=== PATIENT | female | born 1995 | race African-American/Black ===

== ENCOUNTER 2017-05-30 17:50 | Inpatient (IN) ==
[2017-05-30] MEDS: LACTATED RINGERS 1,000 ML IV SCH ×2 (18:20→21:49)
[2017-05-30] MEDS ORDERED: ONDANSETRON 4 MG/2 ML VIAL IV PRN (18:21)
[2017-05-30] MEDS ORDERED: BUTORPHANOL 2 MG/ML VIAL IV PRN (18:21)
[2017-05-30 18:43] LABS: Basophils % 0.2 % (0.0-0.8); Eosinophils % 0.3 % (0.00-10.9); Hematocrit 30.1 VOL% (35.7-47.0); Hemoglobin 9.8 GM/DL (12.0-16.0); Immature Granulocytes % 0.6 %; Immature Granulocytes Absolute 0.04 #; Lymphocytes % 32.4 % (21.3-54.2); Mean Corpuscular HGB Conc 32.6 GM/DL (32-36); Mean Corpuscular Hemoglobin 26 PG (27-34); Mean Corpuscular Volume 81.1 FL (87-102); Mean Platelet Volume 10.7 FL (9.6-12.0); Monocytes # 0.4 10*3/uL (0.11-0.8); Monocytes % 6.8 % (1.7-12.7); Neutrophils # 3.8 10*3/uL (1.4-7.4); Neutrophils % 59.7 % (38.7-73.9); Platelet Count 282 T/CUMM (130-400); Red Blood Count 3.71 MC/CUMM (3.8-5.5); Red Cell Distribution Width 13.2 % (9.3-17.3); White Blood Count 6.3 T/CUMM (4-12)
[2017-05-30] MEDS: AMPICILLIN INJ 2,000 MG in SODIUM CHLORIDE 0.9% 50 ML IV SCH (19:22)
[2017-05-30 19:31] LABS: Albumin 2.5 G/DL (3.4-5.0); Bilirubin,Total 0.5 MG/DL (0.2-1.0); Calcium 9.1 MG/DL (8.5-10.1); Osmolality,Calculated 273.5 MOS/KG (273-304); Potassium 4.1 MMOL/L (3.5-5.1)
[2017-05-30] MEDS ORDERED: MEPERIDINE 50 MG/1 ML VIAL IV PRN (21:24)
[2017-05-30] MEDS ORDERED: CITRIC ACID/SODIUM CITRATE 30 ML UDCUP PO ONE (21:48)
[2017-05-30] MEDS ORDERED: FAMOTIDINE 20 MG/2 ML VIAL IV ONE (21:48)
[2017-05-30] MEDS ORDERED: ePHEDrine 50 MG/ML AMP ONE (21:51)
[2017-05-30] MEDS: fentaNYL 2 MCG/ROPIV 0.2% EPID 150 ML EPIDURAL SCH (22:07)
[2017-05-30 23:05] LABS: Apearance,Urine Slightly Hazy (Clear); Bilirubin,Urine Negative (Negative); Blood, Urine Negative (Negative); Glucose,Urine (UA) Negative (Negative); Ketones,Urine 20 mg/dL (Negative); Mucus,Urine Occasional /LPF (Occasional); Nitrite,Urine Negative (Negative); Protein,Urine Negative; RBC,Urine 2 /HPF (0-4); Squamous Epithelial Cell,Urine Occasional /HPF (0-10); Urine Color Yellow (Yellow); Urine Specific Gravity 1.024 (1.001-1.035); WBC,Urine 1 /HPF (0-6)
[2017-05-31] MEDS: AMPICILLIN INJ 2,000 MG in SODIUM CHLORIDE 0.9% 50 ML IV SCH ×3 (01:10→17:56)
[2017-05-31] MEDS ORDERED: OXYTOCIN/LR 20 UNIT/1,000 ML BAG IV SCH ×2 (04:00)
[2017-05-31] MEDS: fentaNYL 2 MCG/ROPIV 0.2% EPID 150 ML EPIDURAL SCH (08:20)
[2017-05-31] MEDS ORDERED: miSOPROStol 200 MCG TABLET ONE (09:53)
[2017-05-31] MEDS ORDERED: miSOPROStol 200 MCG TABLET VAG ONE (09:55)
[2017-05-31 10:04] LABS: Cord Venous Blood HCO3 19.4 MMOL/L; Cord Venous Blood PCO2 39.6 MMHG; Cord Venous Blood PO2 38.1
--- NOTE | 2017-05-31 10:58 | OB/GYN History & Physical ---
History of Present Illness Chief complaint: Spontaneous rupture of membranes History of present illness: Ms. Chung is a 21 year old female who is a primigravida. JOHNY 06/13/2017 estimated gestational age of 38 weeks who presented to the labor department with complaints of spontaneous rupture membranes with clear fluid noted. In light of these findings patient was admitted for augmentation of labor due to spontaneous rupture membranes. The risk and benefits been thoroughly discussed with this patient significant other, plan of care has been discussed with Dr. Joy and all parties are in agreement with plan of care. Patient is started her care and her second trimester at the [facility] after that she received routine care throughout and her course was uneventful. labs: She is B positive, rubella is immune, RPR is nonreactive, hepatitis B negative, HIV negative, GBS culture positive. Review of systems is negative with exception of above. Home Medications Medication Instructions Recorded Confirmed Type No Known Home Medications [No 05/30/17 05/30/17 History Known Home Medications] Allergies Allergy/AdvReac Type Severity Reaction Status Date / Time No Known Allergies Allergy Verified 05/09/17 15:20 12 point system: reviewed and no additional remarkable complaints except as stated Medical,Surgical,& Family Hx - Medical History Medical History: noncontributory - Surgical History Surgical History: noncontributory - Family History Family History: noncontributory Family History: Reports;: Family Hypertension (MGM PGM) Denies;: Additional Family History - Social History Smoking Status: Never smoker Frequency of Alcohol Use: None Type of Drug Use: None Marital Status: Single Lives With:: Significant Other Functional capacity: independent ambulation Exam [employer] - Constitutional Vitals: Vital Signs Temp Pulse Resp BP Pulse Ox 05/31/17 04:00 97.6 F 93 H 18 106/65 100 05/31/17 00:00 97.8 F 75 18 101/64 100 05/30/17 19:17 97.7 F 86 18 112/77 99 05/30/17 18:26 85 18 122/77 General appearance: no acute distress - Antepartum / Post Antepartum Exam Cervix - Dilatation: Completely dilated Breast: bilateral: normal Abdomen obstetrics: Present: bowel sounds normal Vagina: Present: normal moisture, discharge Uterus exam: Present: enlarged Anus/Rectum: Present: normal perianal skin - Head Head exam: Present: normal inspection - Respiratory Respiratory exam: Present: clear to auscultation bilaterally - Cardiovascular Cardiovascular exam: Present: regular rate and rhythm - GI/Abdominal GI/Abdominal exam: Present: normal bowel sounds, soft - Extremities Exam Extremities exam: Present: normal inspection - Back Exam Back exam: Present: normal inspection - Neurological Exam Neurological exam: Present: alert, oriented X3 - Psychiatric Psychiatric exam: Present: normal affect, normal mood - Skin Skin exam: Present: normal color, warm Assessment and Plan (1) Spontaneous rupture of amniotic membranes Status: Acute Assessment and plan: Admit IV fluids IV Pitocin per protocol Internal monitors if indicated Epidural anesthesia if desired IV antibiotics prophylactically for positive GBS culture Anticipate Current Visit: Yes Results - Labs CBC & BMP: 05/30/17 18:33 05/30/17 18:33 Quality Measures - VTE Contraindication to Pharmacological VTE Prophylaxis: Clinical assessment deems Pt at low risk, no prophalaxis needed
[2017-05-31] MEDS ORDERED: ACETAMINOPHEN/CODEINE 300-30 MG TABLET PO PRN (11:13)
--- NOTE | 2017-05-31 11:19 | Event Note ---
HPI: Ms. Chung presented to the labor department with spontaneous rupture membranes. She was admitted for augmentation of labor due to the same. Stage I: The patient was admitted and she received IV fluids and IV Pitocin per protocol. She progressed in labor with a CAT 1 tracing. She received IV antibiotics prophylactically for positive GBS culture. She received an epidural for pain control. She progressed in labor with a CAT 1 tracing. She had an uneventful course of labor. Stage II: The patient was complete complain of pressure and desire to push. She pushed for approximately 45 minutes after which time she started to experience exhaustion therefore a second-degree midline episiotomy was performed. The patient pushed for another 5-10 minutes. When the 's head was at a +3 station vacuum application was applied 2 with attempt at the second attempt it was noted that the 's head was in OP position therefore no further attempts were made. The patient pushed approximately 3 more times after this and manual rotation of the infant's head was performed and the head was then delivered the mouth and nose were suctioned on the perineum. The remainder the was delivered at 937, a viable male was noted. The was placed on the mom's abdomen for skin to skin bonding. Apgars were 8 at 1 minute and 9 at 5 minutes. weight was 7 pounds and 13 ounces. A cord pH was obtained and sent to the lab. Stage III: A spontaneous delivery of a Wyatt placenta with a three-vessel cord noted. The placenta was further examined appeared to be grossly intact. The vagina cervix inspected with no additional tears or lacerations noted. The episiotomy was repaired in the usual fashion, epidural anesthesia remain in effect on repair. Estimated blood loss approximately 250 cc. At the time of dictation mother and baby are both in stable condition.
[2017-05-31] MEDS ORDERED: BENZOCAINE 20%/MENTHOL 0.5% SPRAY 56 GM CAN TOP PRN (14:31)
[2017-05-31] MEDS ORDERED: DIPH/TET/ACEL PERT BOOSTER VACCINE 0.5 ML VIAL IM ONE (14:31)
[2017-05-31] MEDS ORDERED: MEASLES/MUMPS/RUBELLA VACCINE 0.5 ML VIAL SUBCUT ONE (14:31)
[2017-05-31] MEDS ORDERED: BISACODYL 10 MG SUPP RECTAL PRN (14:31)
[2017-05-31] MEDS ORDERED: RHO(D) IMMUNE GLOBULIN 300 MCG SYRINGE IM ONE (14:31)
[2017-05-31] MEDS ORDERED: ACETAMINOPHEN 325 MG TABLET PO PRN (14:31)
[2017-05-31] MEDS ORDERED: HYDROCORTISONE 2.5% RECTAL CREAM 30 GM TUBE TOP PRN (14:31)
[2017-05-31] MEDS ORDERED: WITCH HAZEL PADS 100/JAR TOP PRN (14:31)
[2017-05-31] MEDS ORDERED: LANOLIN 50% CREAM 0.3 OZ TUBE TOP PRN (14:31)
[2017-05-31] MEDS ORDERED: oxyCODONE/ACETAMINOPHEN 5-325 MG TABLET PO PRN ×2 (14:31)
[2017-05-31] MEDS: LACTATED RINGERS 1,000 ML IV SCH (17:54)
[2017-05-31] MEDS ORDERED: OXYTOCIN/LR 20 UNIT/1,000 ML BAG IV ONE (18:22)
[2017-05-31] MEDS: IBUPROFEN 800 MG TABLET PO PRN (20:20)
[2017-05-31] MEDS: DOCUSATE SODIUM 100 MG CAPSULE PO SCH (20:43)
[2017-06-01 04:50] LABS: Basophils % 0.1 % (0.0-0.8); Eosinophils # 0.1 10*3/uL (0.0-0.87); Eosinophils % 0.4 % (0.00-10.9); Hematocrit 21.6 VOL% (35.7-47.0); Hemoglobin 6.8 GM/DL (12.0-16.0); Immature Granulocytes % 0.5 %; Immature Granulocytes Absolute 0.08 #; Lymphocytes # 2.8 10*3/uL (1.4-4.0); Lymphocytes % 18.7 % (21.3-54.2); Mean Corpuscular HGB Conc 31.5 GM/DL (32-36); Mean Corpuscular Hemoglobin 26 PG (27-34); Mean Corpuscular Volume 82.8 FL (87-102); Mean Platelet Volume 11.2 FL (9.6-12.0); Monocytes % 6.8 % (1.7-12.7); Neutrophils # 11.1 10*3/uL (1.4-7.4); Neutrophils % 73.5 % (38.7-73.9); Platelet Count 227 T/CUMM (130-400); Red Blood Count 2.61 MC/CUMM (3.8-5.5); Red Cell Distribution Width 13.1 % (9.3-17.3); White Blood Count 15.2 T/CUMM (4-12)
[2017-06-01 06:15] LABS: Giant Platelets Few; Hypochromasia 1+; Microcytosis Slight; Platelet Estimate Adequate
[2017-06-01] MEDS: FERROUS SULFATE 325 MG TABLET PO SCH ×2 (08:53→21:16)
[2017-06-01] MEDS: DOCUSATE SODIUM 100 MG CAPSULE PO SCH ×2 (08:54→21:16)
[2017-06-01] MEDS ORDERED: SODIUM CHLORIDE 0.9% 250 ML IV PRN (09:14)
--- NOTE | 2017-06-01 13:14 | Progress Note ---
Family Medicine PN Sub Interval history: day #1 Status post vaginal delivery Lungs are clear, cardiac exam benign, abdomen soft, extremities are well within normal limits H&H is down to 6 and 21 We will plan on administering 2 units of packed RBCs possible discharge in tomorrow. Exam (Progress Note) - Constitutional Vitals: Period Temp Pulse Resp BP Sys/Trevizo Pulse Ox Last 24 Hr 96.8 F-97.9 F 68-89 18-20 89-109/45-68 98-100 Results - Labs CBC & BMP: 06/01/17 04:01 05/30/17 18:33 Quality Measures - VTE Contraindication to Pharmacological VTE Prophylaxis: Clinical assessment deems Pt at low risk, no prophalaxis needed Specialty Discharge - Follow Up or Referrals Follow up with: Jose Joy MD [Physician] -
[2017-06-01 15:37] LABS: Hematocrit 25.8 VOL% (35.7-47.0)
[2017-06-01 15:40] LABS: Hemoglobin 8.6 GM/DL (12.0-16.0)
[2017-06-01] MEDS: IBUPROFEN 800 MG TABLET PO PRN (21:16)
[2017-06-02] MEDS: FERROUS SULFATE 325 MG TABLET PO SCH (08:05)
[2017-06-02] MEDS: DOCUSATE SODIUM 100 MG CAPSULE PO SCH (08:05)
[2017-06-02 08:53] VITALS: BP 108/67
--- NOTE | 2017-06-02 09:41 | Discharge Summary ---
Hospital Course - Hospital Course Hospital Course: Ms. Chung presented to the labor department in active labor. She subsequently delivered a viable with no complications. She has followed a normal course and she has done well. Her bleeding is minimal with no odor. Her perineum is intact with no edema. Her vital signs and lab values are stable. She is bonding well with her . Contraception options has been discussed with this patient and she is unsure of a method at this time. She will be discharged home prescriptions for pain and a follow-up appointment in our office. Diagnosis - Discharge Diagnosis (1) Spontaneous rupture of amniotic membranes Status: Acute Specialty Discharge - Follow Up or Referrals Follow up with: Jose Joy MD [Physician] - (Follow-up in 6 weeks.) Discharge Plan - Discharge Data Disposition: Disch To Home/Self Care Condition at Discharge: Stable Discharge Diet: advance to your usual diet, regular diet Activity: resume usual activities as tolerated Hygiene: no restrictions, may shower Weight Bearing at Discharge: weight bear as tolerated Driving: no restrictions Contact your physician if you experience:: fever over 101, pain uncontrolled by pain medications - Discharge Medications New Acetamin/Codeine 300-30 Tab [Tylenol/Codeine #3] 2 tablet PO Q4H PRN #30 tablet PRN Reason: Pain Mild (1-3) Ferrous Sulfate Tab [Feosol Original Tab] 325 mg PO BID #60 tablet Ibuprofen Tab [Motrin Tab] 800 mg PO Q6H PRN #30 tablet PRN Reason: Pain Moderate (4-7) - Follow Up or Referral Follow Up: Jose Joy MD [Physician] - - Forms/Instructions Instructions: Acetaminophen/Codeine (By mouth), Perineal Care (DC), Vaginal Delivery (DC), Bleeding (DC) Exam - Constitutional Vitals: Period Temp Pulse Resp BP Sys/Trevizo Pulse Ox Last 24 Hr 97 F-98.8 F 63-79 18-20 89-123/45-67 98-100 General appearance: no acute distress - Head Head exam: Present: normal inspection - ENT ENT exam: Present: normal exam - Respiratory Respiratory exam: Present: clear to auscultation bilaterally - Cardiovascular Cardiovascular exam: Present: regular rate and rhythm - GI/Abdominal GI/Abdominal exam: Present: normal bowel sounds, soft - Extremities Exam Extremities exam: Present: normal inspection - Back Exam Back exam: Present: normal inspection - Neurological Exam Neurological exam: Present: alert, oriented X3 - Psychiatric Psychiatric exam: Present: normal affect, normal mood - Skin Skin exam: Present: normal color, warm Discharge Results Procedures and tests throughout hospitalization: Pending Orders 05/30/17 18:22 Urinalysis Routine Labs on day of discharge: Labs from last 24 hours 06/01/17 06/01/17 15:10 04:00 Hgb 8.6 L D Hct 25.8 L Blood Type Cancelled Antibody Screen Cancelled Crossmatch See Detail Blood Bank Comment Cancelled DS: Provider Date of admission: 05/30/17 18:22 Attending physician on admission: Jose Joy MD Consults: 05/30/17 18:22 Consult to Anesthesiology [CONS] Routine Consulting Provider: Reason for Anesthesiology: Epidural Consult Comment: Epidural for pain managment 05/31/17 14:31 Consult to Cement Finisher [CONS] Routine Consult Cement Finisher: Breast Feeding Discharging clinician: Eva Ojeda CNM Expected date of discharge: 06/02/17
--- NOTE | 2017-06-02 10:06 | Anesthesia Post-Op ---
Anesthesia Post OP - Post Ansesthetic Evaluation Patient seen in post op: Yes Resp: within normal limits CV: within normal limits Mental: within normal limits Temp: within normal limits [id number]: within normal limits Nausea and Vomiting: within normal limits Pain: within normal limits
== END 2017-06-02 12:35 | disposition home or self-care (01) | DRG 560 ==
LOC: N.LDOUT 17:50 → N.LD 17:52 → N.OB 05-31 14:26
PROVIDERS: ADMIT Obstetrics & Gynecology; ATTEND Obstetrics & Gynecology

== ENCOUNTER 2019-07-28 06:03 | Inpatient (IN) ==
[2019-07-28] MEDS ORDERED: ONDANSETRON 4 MG/2 ML VIAL IV PRN (06:15)
[2019-07-28] MEDS ORDERED: LACTATED RINGERS 1,000 ML IV SCH ×2 (06:30→08:00)
[2019-07-28] MEDS ORDERED: OXYTOCIN/LR 20 UNIT/1,000 ML BAG IV SCH (06:30)
[2019-07-28 06:45] LABS: Basophils % 0.3 % (0.0-0.8); Eosinophils % 0.3 % (0.00-10.9); Hematocrit 28.9 VOL% (35.7-47.0); Hemoglobin 9.2 GM/DL (12.0-16.0); Immature Granulocytes % 0.3 %; Immature Granulocytes Absolute 0.02 #; Lymphocytes # 1.9 10*3/uL (1.4-4.0); Lymphocytes % 27.8 % (21.3-54.2); Mean Corpuscular HGB Conc 31.8 GM/DL (32-36); Mean Corpuscular Volume 77.9 FL (87-102); Mean Platelet Volume 10.9 FL (9.6-12.0); Monocytes % 5.2 % (1.7-12.7); Neutrophils % 66.1 % (38.7-73.9); Platelet Count 241 T/CUMM (130-400); Red Blood Count 3.71 MC/CUMM (3.8-5.5); Red Cell Distribution Width 13.4 % (9.3-17.3); White Blood Count 6.8 T/CUMM (4-12)
[2019-07-28 07:17] LABS: Albumin 2.5 G/DL (3.4-5.0); Bilirubin,Total 0.4 MG/DL (0.2-1.0); Calcium 8.4 MG/DL (8.5-10.1); Osmolality,Calculated 271.7 MOS/KG (273-304); Total Protein 6.8 G/DL (6.4-8.3)
[2019-07-28] MEDS ORDERED: diphenhydrAMINE 50 MG/1 ML VIAL IV PRN ×2 (07:39)
[2019-07-28] MEDS ORDERED: hydrOXYzine HCL 25 MG/1 ML VIAL IM PRN (07:39)
[2019-07-28] MEDS ORDERED: CITRIC ACID/SODIUM CITRATE 30 ML UDCUP PO ONE (07:39)
[2019-07-28] MEDS ORDERED: FAMOTIDINE 20 MG/2 ML VIAL IV ONE (07:39)
[2019-07-28] MEDS ORDERED: LACTATED RINGERS 1,000 ML IV ONE (07:39)
[2019-07-28] MEDS ORDERED: NALOXONE 0.4 MG/ML VIAL IV PRN (07:39)
[2019-07-28] MEDS ORDERED: ePHEDrine 50 MG/ML AMP IV PRN (07:39)
[2019-07-28] MEDS ORDERED: PROMETHAZINE 25 MG/1 ML VIAL IM ONE (07:39)
[2019-07-28] MEDS ORDERED: fentaNYL 2 MCG/ROPIV 0.2% EPID 100 ML EPIDURAL SCH (08:00)
[2019-07-28] MEDS ORDERED: LIDOCAINE 1% 50 ML VIAL ONE (09:46)
[2019-07-28] MEDS ORDERED: miSOPROStoL 200 MCG TABLET ONE (09:46)
[2019-07-28 10:11] LABS: Apearance,Urine Slightly Hazy (Clear); Bacteria,Urine Occasional /HPF (Few); Bilirubin,Urine Negative (Negative); Blood, Urine Large mg/dL (Negative); Glucose,Urine (UA) Negative (Negative); Ketones,Urine Negative (Negative); Mucus,Urine Many /LPF (Occasional); Nitrite,Urine Negative (Negative); Protein,Urine 30 MG/DL; RBC,Urine 195 /HPF (0-4); Squamous Epithelial Cell,Urine Occasional /HPF (0-10); Urine Color Yellow (Yellow); Urine Specific Gravity 1.021 (1.001-1.035); WBC,Urine 6 /HPF (0-6)
[2019-07-28 11:12] LABS: Cord Venous Blood PCO2 40.8 MMHG; Cord Venous Blood PO2 35.3
[2019-07-28] MEDS ORDERED: RHO(D) IMMUNE GLOBULIN 300 MCG SYRINGE IM ONE (14:22)
[2019-07-28] MEDS ORDERED: WITCH HAZEL PADS 100/JAR TOP PRN (14:22)
[2019-07-28] MEDS ORDERED: BENZOCAINE 20%/MENTHOL 0.5% SPRAY 56 GM CAN TOP PRN (14:22)
[2019-07-28] MEDS ORDERED: ACETAMINOPHEN 325 MG TABLET PO PRN (14:22)
[2019-07-28] MEDS ORDERED: LANOLIN 50% CREAM 0.3 OZ TUBE TOP PRN (14:22)
[2019-07-28] MEDS ORDERED: DIPH/TET/ACEL PERT BOOSTER VACCINE 0.5 ML VIAL IM ONE (14:22)
[2019-07-28] MEDS ORDERED: OXYTOCIN/LR 20 UNIT/1,000 ML BAG IV ONE (14:22)
[2019-07-28] MEDS ORDERED: HYDROCORTISONE 2.5% RECTAL CREAM 30 GM TUBE TOP PRN (14:22)
[2019-07-28] MEDS ORDERED: oxyCODONE/ACETAMINOPHEN 5-325 MG TABLET PO PRN ×2 (14:22)
[2019-07-28] MEDS ORDERED: BISACODYL 10 MG SUPP RECTAL PRN (14:22)
[2019-07-28] MEDS ORDERED: MEASLES/MUMPS/RUBELLA VACCINE 0.5 ML VIAL SUBCUT ONE (14:22)
[2019-07-28] MEDS: IBUPROFEN 800 MG TABLET PO PRN (18:15)
[2019-07-28] MEDS: DOCUSATE SODIUM 100 MG CAPSULE PO SCH (22:09)
[2019-07-29 05:46] LABS: Basophils % 0.2 % (0.0-0.8); Eosinophils # 0.1 10*3/uL (0.0-0.87); Eosinophils % 0.7 % (0.00-10.9); Hematocrit 26.2 VOL% (35.7-47.0); Hemoglobin 8.1 GM/DL (12.0-16.0); Immature Granulocytes % 0.4 %; Immature Granulocytes Absolute 0.03 #; Lymphocytes # 2.3 10*3/uL (1.4-4.0); Mean Corpuscular HGB Conc 30.9 GM/DL (32-36); Mean Corpuscular Volume 79.6 FL (87-102); Mean Platelet Volume 11.3 FL (9.6-12.0); Monocytes % 5.5 % (1.7-12.7); Neutrophils % 66.2 % (38.7-73.9); Platelet Count 213 T/CUMM (130-400); Red Blood Count 3.29 MC/CUMM (3.8-5.5); Red Cell Distribution Width 13.4 % (9.3-17.3); White Blood Count 8.5 T/CUMM (4-12)
[2019-07-29] MEDS: IBUPROFEN 800 MG TABLET PO PRN (19:48)
[2019-07-29] MEDS: DOCUSATE SODIUM 100 MG CAPSULE PO SCH (21:56)
[2019-07-29] MEDS: FERROUS SULFATE 325 MG TABLET PO SCH (21:56)
[2019-07-30 08:39] VITALS: BP 129/77
[2019-07-30] MEDS: DOCUSATE SODIUM 100 MG CAPSULE PO SCH (09:14)
[2019-07-30] MEDS: FERROUS SULFATE 325 MG TABLET PO SCH (09:14)
[2019-07-30] MEDS ORDERED: INFLUENZA VIRUS VACCINE 0.5 ML SYRINGE IM ONE (10:55)
== END 2019-07-30 14:45 | disposition home or self-care (01) | DRG 560 ==
LOC: N.LDOUT 06:03 → N.LD 06:05 → N.OB 14:07
PROVIDERS: ADMIT Obstetrics & Gynecology; ATTEND Obstetrics & Gynecology